=== PATIENT | male | born 1995 | race Caucasian/White ===

== ENCOUNTER → 2019-12-12 15:25 | Outpatient (BNVA) | payer MEDICAID, SELFPAY | PROVIDERS: Family Provider Nurse Practitioner Family; PCP Physical Therapist; Visit Provider Nurse Practitioner Family | DX: J06.9 Acute upper respiratory infection, unspecified (principal); G80.9 Cerebral palsy, unspecified; R50.9 Fever, unspecified | CPT/HCPCS: 87804 ==

== ENCOUNTER 2020-02-06 09:37 | Outpatient (RCR) | payer MEDICAID, SELFPAY | END 2020-02-15 23:59 | disposition home or self-care (01) | LOC: SPT 09:37 | PROVIDERS: Family Provider Nurse Practitioner Family; PCP Nurse Practitioner Family; Referring Provider Nurse Practitioner Family; Visit Provider Nurse Practitioner Family | DX: G89.29 Other chronic pain (principal); M54.2 Cervicalgia; M54.9 Dorsalgia, unspecified | CPT/HCPCS: 97110; 97161 ==

== ENCOUNTER 2020-02-16 06:00 | Outpatient (RCR) | payer MEDICAID, SELFPAY | END 2020-03-17 23:59 | disposition home or self-care (01) | LOC: SPT 06:00 | PROVIDERS: PCP Nurse Practitioner Family; Referring Provider Nurse Practitioner Family; Visit Provider Nurse Practitioner Family | DX: G89.29 Other chronic pain (principal); M54.2 Cervicalgia; M54.9 Dorsalgia, unspecified | CPT/HCPCS: 97110 ==

== ENCOUNTER 2020-03-18 | Outpatient (RCR) | payer MEDICAID, SELFPAY | END 2020-04-03 23:00 | disposition home or self-care (01) | LOC: SPT | PROVIDERS: PCP Nurse Practitioner Family; Referring Provider Nurse Practitioner Family; Visit Provider Nurse Practitioner Family | DX: G89.29 Other chronic pain (principal); M54.9 Dorsalgia, unspecified; M54.2 Cervicalgia | CPT/HCPCS: 97110 ==

== ENCOUNTER 2022-04-06 12:41 | Outpatient (CLI) | payer MEDICAID, SELFPAY ==
--- NOTE | 2022-04-06 13:30 | CT_ITS ---
WS: [id number] CT HEAD NONCONTRAST HISTORY: R22.0 - Localized swelling, mass and lump, head TECHNIQUE: Contiguous axial imaging performed through the brain in 2.5 mm imaging. Bone and soft tiss ue windows. Sagittal and coronal reformats reviewed. All CT scans at [facility] use at least one of these dose optimization techniques: automated exposure control; mA and/or kV adjustment per pa tient size (includes targeted exams where dose is matched to clinical indication); or iterative recon struction. DLP: 1167.38 mGy.cm COMPARISON: None available. No acute intracranial hemorrhage, midline shift or mass effect. No atrophy or prior infarcts or herniation. Ventricles: Normal size with no hydrocephalus. Paranasal sinuses: Frontal sinuses are clear. Moderate soft tissue thickening in the frontal ethmoid recesses extending to the ethmoid and sphenoid sinuses. Mild mucoperiosteal thickening in the visuali zed maxillary sinuses. Mastoid air cells: Well pneumatized. Calvarium and scalp: No fracture. Prominent bony protuberance corresponds to the palpable abnormality along the posterior skull. This is consistent with an external occipital protuberance. This protuber ance is where the ligamentum nuchae and the trapezius muscles attach. CT/CT head wo con* 94211 IMPRESSION: 1. Palpable posterior skull lesion corresponds to the midline bony prominence noted is the external occipital protuberance. This is very prominent in this pa tient but a normal landmark. 2. No acute intracranial edema or hemorrhage. 3. Chronic appearing sinusitis.
== END 2022-04-06 12:42 | disposition home or self-care (01) ==
LOC: RAD 12:46
PROVIDERS: PCP Nurse Practitioner Family; Visit Provider Nurse Practitioner Family
DX: R22.0 Localized swelling, mass and lump, head (principal); G93.9 Disorder of brain, unspecified
CPT/HCPCS: 70450

== ENCOUNTER 2025-01-04 12:32 | Emergency (ER) | payer MEDICAID, SELFPAY ==
[2025-01-04 12:41] VITALS: BP 149/83; PULSE 52; RESP 18; TEMP 37; O2SAT 97; BMI 31.4
--- NOTE | 2025-01-04 13:02 | ECG_ITS ---
[facility] Test Date: 2025-01-04 Pat Name: Earl Rodriguez Department: Room: Gender: Male [employer] Inspector: : 1995 Requested By: Cinthya Hernandez Order Number: [id number] Saeed MD: Hair Liu M.D. Measurements Intervals [place] Rate: 46 P: 8 [place]: 125 QRS: 52 QRSD: 97 T: 39 QT: 400 QTc: 350 Interpretive Statements SINUS BRADYCARDIA No previous ECG available for comparison Electronically Signed On 01-06-2025 07:48:25 CDT by Hair Liu M.D. [id number]
[2025-01-04 14:22] VITALS: BP 127/70; O2SAT 97
--- NOTE | 2025-01-04 14:30 | ED_ITS ---
HPI - General Adult 2 General: Chief complaint: General Medical Stated complaint: lower pulse rate Time Seen by Provider: 01/04/25 14:21 History of Present Illness: 29-year-old male brought in because elie slater was concerned about pulse rate in the 40s to 60s. Patient has some underlying cerebral palsy. Patient's home health care nurse was checking on him and reported it was slow and concerned the family. Family thinks maybe is a little pale. He is not having any symptoms. They are unsure what his baseline pulse rate is. Associated symptoms: Deny chest pain, dyspnea, nausea or vomiting Related Data Home Medications ?Medication ?Instructions ?Recorded ?Confirmed azelastine 137 mcg (0.1 %) nasal 2 spray intranasal BI D 01/04/25 01/04/25 spray fexofenadine-pseudoephedrine ER 1 tab PO QAM PRN aller gies 01/04/25 01/04/25 180 mg-240 mg tablet,ext.release 24 hr (Irene-D 24 Hour) fluticasone propionate 50 2 spray intranasal DAILY 01/04/25 mcg/actuation nasal spray,suspension Previous Rx's ?Medication ?Instructions ?Recorded fluoxetine 20 mg capsule See Rx Instructions .Route 1 10/24/23 .COMPLEX #90 caps Allergies Allergy/AdvReac Type Severity Reaction Status Date / Time No Known Allergies Allergy Verified 08/29/24 14:41 Review of Systems 2 Const: Denies: fever(s) or chills Card: Denies: chest pain or lightheadedness Resp: Denies: dyspnea, productive cough or non-productive cough GI: Denies: abdominal pain, nausea or vomiting PFSH ED 2 PFSH: Medical History Anxiety Dependent for wheelchair mobility Cerebral palsy Social History Smoking and tobacco/nicotine status: never used tobacco/nicotine Second hand smoke exposure: Yes Physical Exam 2 Const: OTHER: Wheelchair-bound Resp: COMMON NORMALS: normal respiratory effort, No use of accessory muscles and clear to auscultation bilaterally AUSCULTATION: clear to auscultation bilaterally Cardio: COMMON NORMALS: regular rhythm RATE: bradycardic RHYTHM: regular rhythm GI: COMMON NORMALS: Soft to palpation and non-tender PALPATION: Yes Soft to palpation Neuro: OTHER: At baseline Psych: COMMON NORMALS: cooperative and normal affect Skin: COMMON NORMALS: no rashes or lesions noted GENERAL SKIN EXAM: no rashes or lesions noted Course 2 Vital Signs: Vital signs: Vital Signs Temperature 98.6 F 01/04/25 12:41 Pulse Rate 52 L 01/04/25 12:41 Respiratory Rate 18 01/04/25 12:41 Blood Pressure 127/70 01/04/25 14:22 Pulse Oximetry 97 01/04/25 14:22 Oxygen Delivery Me thod Room Air 01/04/25 12:41 MDM - General Adult Medical Decision Making Patient's EKG was ordered shows sinus bradycardia ventricular rate 46, HI 125, QTc 358, patient's labs were reviewed and show no acute findings. Patient's chart review shows he has been having bradycardia since at least 2019 with heart rates in the 50s on chart review. Discussed with family is likely his baseline. Patient remains asymptomatic. Recommend he follow-up with a primary care provider as needed. Lab Data 01/04/25 14:37 01/04/25 14:37 Laboratory Results WBC 7.34 10^3/uL (3.29-11.43) 01/04/25 14:37 RBC 5.07 10^6/uL (3.85-5.65) 01/04/25 14:37 Hgb 14.60 g/dL (11.27-16.99) 01/04/25 14:37 Hct 43.3 % (37-53) 01/04/25 14:37 MCV 85.4 fl (82-101) 01/04/25 14:37 MCH 28.8 pg (27-33) 01/04/25 14:37 MCHC 33.7 g/dL (30-55) 01/04/25 14:37 RDW 12.3 % (12.1-15.1) 01/04/25 14:37 Plt Count 243 10^3/cmm (157-399) 01/04/25 14:37 MPV 10.6 fL (7.4-10.4) H 01/04/25 14:37 Neut % (Auto) 58.1 % 01/04/25 14:37 Lymph % (Auto) 28.3 % 01/04/25 14:37 [place] % (Auto) 6.9 % 01/04/25 14:37 Eos % (Auto) 4.9 % 01/04/25 14:37 Baso % (Auto) 1.1 % 01/04/25 14:37 Neut # (Auto) 4.26 10^3/uL (1.8-7.7) 01/04/25 14:37 Lymph # (Auto) 2.1 10^3/uL (0.8-4.8) 01/04/25 14:37 [place] # (Auto) 0.5 10^3/uL (0.2-0.9) 01/04/25 14:37 Eos # (Auto) 0.4 10^3/uL (0.0-0.8) 01/04/25 14:37 Baso # (Auto) 0.1 10^3/uL (0.0-0.1) 01/04/25 14:37 Nucleated RBC % (auto) 0 % 01/04/25 14:37 Nucleated RBCs # 0.0 /100WBC 01/04/25 14:37 Sodium 140 mmol/L (136-145) 01/04/25 14:37 Potassium 4.3 mmol/L (3.5-5.1) 01/04/25 14:37 Chloride 105 mmol/L (98-107) 01/04/25 14:37 Carbon Dioxide 27 mmol/L (22-29) 01/04/25 14:37 Anion Gap 12.3 (5-19) 01/04/25 14:37 BUN 13 mg/dL (6-20) 01/04/25 14:37 Creatinine 0.7 mg/dL (0.7-1.2) 01/04/25 14:37 GFR Calculation 133.3 mL/min (90-130) H 01/04/25 14:37 Glucose 89 mg/dL (65-115) 01/04/25 14:37 Calculated Osmolality 290 mOsm/kg (285-295) 01/04/25 14:37 Calcium 9.4 mg/dL (8.5-10.5) 01/04/25 14:37 Magnesium 2.4 mg/dL (1.7-2.3) H 01/04/25 14:37 No radiology studies performed this visit Discharge Plan Discharge Patient Disposition: Home Clinical Impression: Sinus bradycardia Condition: Stable Prescriptions: No Action fluoxetine 20 mg capsule See Rx Instructions .ROUTE .COMPLEX Qty: 90 0RF Dose Instruction: TAKE 1 CAPSULE BY MOUTH DAILY Rx Instructions: TAKE 1 CAPSULE BY MOUTH DAILY azelastine 137 mcg (0.1 %) spray,non-aerosol 2 spray INTRANASAL BID fluticasone propionate 50 mcg/actuation spray,suspension 2 spray INTRANASAL DAILY fexofenadine-pseudoephedrine [Irene-D 24 Hour] 180-240 mg Tablet Extended Release 24 Hr 1 tab PO QAM PRN (Reason: allergies) Discharge Orders: Discharge ED (Routine); Ordered 01/04/25 Ordered By: Micky Suarez Referrals: Ruthann Márquez FNP [Primary Care Provider] - Discharge Diet: Usual diet Discharge Activity: Resume usual activity Patient Instructions: Bradycardia (ED), Opioid Safety, Pain Management Activity Restrictions/Additional Instructions: Please follow-up with your primary care provider for continued outpatient management and further evaluations Print Language: Serbian Coding Level of Care Code ED Track Car Operator for Perla Barbour
[2025-01-04 14:57] LABS: Basophils # 0.1 10^3/uL (0.0-0.1); Basophils % 1.1 %; Eosinophils # 0.4 10^3/uL (0.0-0.8); Eosinophils % 4.9 %; Hematocrit 43.3 % (37-53); Lymphocytes # 2.1 10^3/uL (0.8-4.8); Lymphocytes % 28.3 %; Mean Corpuscular HGB Conc 33.7 g/dL (30-55); Mean Corpuscular Hemoglobin 28.8 pg (27-33); Mean Corpuscular Volume 85.4 fl (82-101); Mean Platelet Volume 10.6 fL (7.4-10.4); Monocytes # 0.5 10^3/uL (0.2-0.9); Monocytes % 6.9 %; Neutrophils # 4.26 10^3/uL (1.8-7.7); Neutrophils % 58.1 %; Nucleated Red Blood Cells % 0 %; Platelet Count 243 10^3/cmm (157-399); Red Blood Count 5.07 10^6/uL (3.85-5.65); Red Cell Distribution Width 12.3 % (12.1-15.1); White Blood Count 7.34 10^3/uL (3.29-11.43)
[2025-01-04 15:21] LABS: Anion Gap 12.3 (5-19); Blood Urea Nitrogen 13 mg/dL (6-20); Calcium 9.4 mg/dL (8.5-10.5); Carbon Dioxide 27 mmol/L (22-29); Chloride 105 mmol/L (98-107); Glomerular Filtration Rate 133.3 mL/min (90-130); Glucose 89 mg/dL (65-115); Magnesium 2.4 mg/dL (1.7-2.3); Osmolality Calculated 290 mOsm/kg (285-295); Potassium 4.3 mmol/L (3.5-5.1); Sodium 140 mmol/L (136-145)
[2025-01-04 15:42] VITALS: BP 129/77; PULSE 53; RESP 18; O2SAT 96
== END 2025-01-04 15:44 | disposition home or self-care (01) ==
PROVIDERS: Emergency Provider Student in an Organized Health Care Education/Training Program; PCP Nurse Practitioner Family
DX: R00.1 Bradycardia, unspecified (principal)
CPT/HCPCS: 36415; 80048; 83735; 85025; 93005; 99284

== ENCOUNTER → 2025-01-11 10:24 | Outpatient (BNVA) | payer MEDICAID, SELFPAY | PROVIDERS: PCP Nurse Practitioner Family; Referring Provider Nurse Practitioner Family; Visit Provider Internal Medicine | DX: R00.1 Bradycardia, unspecified (principal); I49.3 Ventricular premature depolarization; I49.1 Atrial premature depolarization | CPT/HCPCS: 93242 ==

== ENCOUNTER → 2025-03-08 12:23 | Outpatient (BNVA) | payer MEDICAID, SELFPAY | PROVIDERS: PCP Nurse Practitioner Family; Visit Provider Internal Medicine Cardiovascular Disease | DX: R07.9 Chest pain, unspecified (principal) | CPT/HCPCS: 36415; 80053; 80061; 84439; 84481; 85025; 93005 ==

== ENCOUNTER 2025-04-26 07:29 | Outpatient (CLI) | payer MEDICAID, SELFPAY ==
--- NOTE | 2025-04-26 07:45 | USCV_ITS ---
Earl Rodriguez Age: 30 Gender: M : 1995 Exam Date: 04/26/2025 07:39 Ordering Phys: Neftaly Patino MD ([email or web address]) Technologist: [place] [facility] [place] cp sob BP: 120 / 70 HR: 53 Rhythm: Sinus Technical Quality: Adequate MEASUREMENTS (Male / Female) Normal Values 2D ECHO LV Diastolic Diameter PLAX 3.4 cm 4.2 - 5.9 / 3.9 - 5.3 cm IVS Diastolic Thickness 1.2 cm 0.6 - 1.0 / 0.6 - 0.9 cm IVS Systolic Thickness 1.6 cm LVPW Diastolic Thickness 1.3 cm 0.6 - 1.0 / 0.6 - 0.9 cm LVPW Systolic Thickness 1.8 cm LVOT Diameter 2.0 cm LV Ejection Fraction 2D Teich 61.0 % LV Ejection Fraction MOD 4C 56.7 % LV Ejection Fraction MOD 2C 65.6 % LV Ejection Fraction 2C AL 65.9 % LA Diameter 3.1 cm RA Systolic Volume 4C AL 23.1 ml RA Systolic Volume 4C MOD 20.8 ml Aorta at Sinotubular Diameter 2.8 cm IVC Diameter 2.0 cm M-MODE LA Ao Ratio MM 1.2 AV Cusp Separation MM 2.3 cm DOPPLER AV Peak Velocity 134.0 cm/s LVOT Peak Velocity 89.0 cm/s AV Area Cont Eq vti 2.2 cm squared AV Area Cont Eq pk 2.1 cm squared MV Peak Velocity 103.0 cm/s MV Area PHT 3.5 cm squared Mitral E to A Ratio 1.9 TR Peak Velocity 154.0 cm/s TR Peak Gradient 9.5 mmHg TV Peak E Velocity 74.0 cm/s FINDINGS Left Ventricle Normal left ventricular size, systolic function and wall thickness, with no regional wall motion abnormalities. Left ventricular ejection fraction is estimated at 60 %. Normal diastolic function. Right Ventricle The right ventricle is normal in size and function. Right Atrium The right atrium is normal in size. Left Atrium The left atrium is normal in size. Mitral Valve Structurally normal mitral valve without significant stenosis or prolapse. There is no mitral regurgitation. Aortic Valve Moderate aortic valve calcification. Aortic valve sclerosis. Trace aortic valve regurgitation. Tricuspid Valve Structurally normal tricuspid valve without significant stenosis or regurgitation. Pulmonary artery systolic pressure is normal. Pulmonic Valve Structurally normal pulmonic valve without significant stenosis. There is no pulmonic regurgitation. Pericardium Normal pericardium without effusion. Aorta Normal ascending aorta dimension. IVC The inferior vena cava appears normal. CONCLUSIONS Normal left ventricular size, systolic function and wall thickness, with no regional wall motion abnormalities. Left ventricular ejection fraction is estimated at 60 %. Normal diastolic function. There is no pericardial effusion. No significant valve abnormalities. Right atrial pressure is around 5 mm of mercury. Neftaly Patino MD (Electronically Signed) Final Date: 04 May 2025 18:59 S
== END 2025-04-26 07:30 | disposition home or self-care (01) ==
LOC: RAD 07:29
PROVIDERS: PCP Nurse Practitioner Family; Visit Provider Internal Medicine Cardiovascular Disease
DX: R00.1 Bradycardia, unspecified (principal); I35.8 Other nonrheumatic aortic valve disorders
CPT/HCPCS: 93306

== ENCOUNTER → 2025-09-17 14:20 | Outpatient (BNVA) | payer MEDICAID, SELFPAY | PROVIDERS: PCP Nurse Practitioner Family; Visit Provider Internal Medicine Cardiovascular Disease | DX: R00.1 Bradycardia, unspecified (principal) | CPT/HCPCS: 99214 ==